=== PATIENT | female | born 1975 | race Two or more races ===

== ENCOUNTER 2016-12-28 18:31 | Outpatient (CLI) | payer OTHER ==
[~2016-12-28] VITALS: Ht 157.5 cm; Wt 124.8 kg
[2016-12-28 18:50] VITALS: Ht 157.5 cm; Wt 124.8 kg
[2016-12-28] MEDS ORDERED: PNV11TAB PO (18:54)
[2016-12-28 19:32] LABS: BASOPHILS % 0.2 % (0.0-2.0); EOSINOPHILS % 0.8 % (0.0-7.0); HEMATOCRIT 31.5 % (37.0-47.0); HEMOGLOBIN 10.2 g/dl (12.0-16.0); MEAN CORPUSCULAR HEMOGLOBIN 26.8 pg (29.0-33.0); MEAN CORPUSCULAR HGB CONC 32.4 g/dl (32.0-37.0); MEAN CORPUSCULAR VOLUME 82.7 fl (82.0-101.0); MEAN PLATELET VOLUME 12.9 fl (7.4-10.4); MONOCYTES % 6.8 % (0.0-11.0); NEUTROPHILS % 63.5 % (39.0-77.0); PLATELET COUNT 200 10^3/UL (140-415); RED BLOOD COUNT 3.81 10^6/ul (4.20-5.40); WHITE BLOOD COUNT 10.3 10^3/ul (4.8-10.8)
--- NOTE | 2016-12-28 19:32 | RADRPT ---
PROCEDURE: Obstetrical ultrasound. CLINICAL INDICATION: , evaluation. Pelvic pain. TECHNIQUE: Transabdominal sonographic images of the uterus obtained after first trimester , greater than 14 weeks gestation. Single intrauterine gestation present. COMPARISON: 10/17/2016 FINDINGS: Single intrauterine gestation. There is a cephalic presentation. Measurements were made in order to determine age. The results are as follows: BPD = 37 weeks 6 day(s) HC = 37 weeks 0 day(s) AC = 37 weeks 0 day(s) FL = 37 weeks 2 day(s) ELLIS = not measured Heart rate = 127 beats per minute The placenta is anterior. There is no evidence for an abruption or placenta previa. Ovaries are not visualized. IMPRESSION: Single intrauterine gestation of approximately 37 weeks 2 days by ultrasound criteria. [place] estimated weight = 3126 g; 72 percentile for gestational age of 36 weeks 3 days. RPTAT: AADD .Lee Smiley MD, MD Date Time Electronically viewed and signed by .Lee Smiley MD, on 12/28/2016 19:31 .B/
[2016-12-28 19:33] LABS: EOSINOPHILS # 0.1 10^3/ul (0.0-0.5); LYMPHOCYTES # 2.9 10^3/ul (0.8-2.9); MONOCYTE # 0.7 10^3/ul (0.3-0.9); NEUTROPHIL # 6.6 10^3/ul (1.6-7.5)
--- NOTE | 2016-12-28 19:37 | RADRPT ---
PROCEDURE: Obstetrical ultrasound for biophysical profile CLINICAL INDICATION: Biophysical profile. . TECHNIQUE: Obstetrical ultrasound of the uterus for biophysical profile. Transabdominal views are obtained. COMPARISON: 10/17/2016 FINDINGS: Single intrauterine gestation. Presentation: Cephalic. Placenta: Anterior. No evidence of placental abruption. No evidence of placenta previa. breathing movement = 2/2 tone = 2/2 motion = 2/2 ELLIS = 2/2 ELLIS = 12.2 cm heart rate: 127 beats per minute IMPRESSION: Single intrauterine gestation. Biophysical profile 10/09 RPTAT: AADD .Lee Smiley MD, MD Date Time Electronically viewed and signed by .Lee Smiley MD, on 12/28/2016 19:36 .B/
[2016-12-28 19:47] LABS: INR 0.98
[2016-12-28 19:48] LABS: PARTIAL THROMBOPLASTIN TIME 27.1 Sec (25.0-35.0)
[2016-12-28 20:02] LABS: ALBUMIN 3.5 g/dl (3.3-4.9); ALBUMIN/GLOBULIN RATIO 1.16; BILIRUBIN,INDIRECT 0.1 mg/dl (0-1.1); BILIRUBIN,TOTAL 0.1 mg/dl (0.2-1.3); CALCIUM 8.7 mg/dl (8.4-10.2); CREATININE 0.62 mg/dl (0.44-1.00); POTASSIUM 4.6 mmol/L (3.5-5.1); TOTAL PROTEIN 6.5 g/dl (6.1-8.1); URIC ACID 3.8 mg/dl (3.1-7.9)
--- NOTE | 2016-12-28 21:34 | PN ---
Triage Information Date/Time Reason for visit: Uterine contractions Weeks of Gestation 36w 3d /Para Objective Heart Rate: 120's Heart Rate Comments reactive Contractions: 6-10 Minutes Apart Exam 1cm/thick/high Results/Medications Result Diagram: 12/28/16191112/28/161911 Results 24 hrs Laboratory Tests Test 12/28/16 19:12 White Blood Count 10.3 Red Blood Count 3.81 L Hemoglobin 10.2 L Hematocrit 31.5 L Mean Corpuscular Volume 82.7 Mean Corpuscular Hemoglobin 26.8 L Mean Corpuscular Hemoglobin Concent 32.4 Red Cell Distribution Width 15.0 H Platelet Count 200 Mean Platelet Volume 12.9 H Neutrophils % 63.5 Lymphocytes % 28.0 Monocytes % 6.8 Eosinophils % 0.8 Basophils % 0.2 Nucleated Red Blood Cells % 0.0 Neutrophils # 6.6 Lymphocytes # 2.9 Monocytes # 0.7 Eosinophils # 0.1 Basophils # 0.0 Nucleated Red Blood Cells # 0.0 Prothrombin Time 13.0 Prothrombin Time Ratio 1.0 INR International Normalized Ratio 0.98 Activated Partial Thromboplast Time 27.1 Fibrinogen 663.0 H Sodium Level 139 Potassium Level 4.6 Chloride Level 109 Carbon Dioxide Level 21 Anion Gap 14 Blood Urea Nitrogen 7 Creatinine 0.62 Glucose Level 78 Uric Acid 3.8 Calcium Level 8.7 Total Bilirubin 0.1 L Direct Bilirubin 0.00 Indirect Bilirubin 0.1 Aspartate Amino Transf (AST/SGOT) 14 L Alanine Aminotransferase (ALT/SGPT) 18 Alkaline Phosphatase 118 Total Protein 6.5 Albumin 3.5 Globulin 3.00 Albumin/Globulin Ratio 1.16 Imaging Results BPP 8/8, ELLIS 12.2cm, EFW 3126g Disposition: Discharge Assessment/Plan 41 y/o at 36w 3d with elevated BPs in clinic, no e/o preeclampsia -discharge home with labor precautions -f/u with OB YAMINI BLUE Dec 28, 2016 21:34
[2016-12-28 22:32] LABS: ADD UMIC NO; UR ASCORBIC ACID NEGATIVE (NEGATIVE); UR BILIRUBIN (Dip) NEGATIVE (NEGATIVE); UR BLOOD (Dip) NEGATIVE (NEGATIVE); UR CLARITY CLEAR (CLEAR); UR COLOR YELLOW (YELLOW); UR GLUCOSE (Dip) NEGATIVE (NEGATIVE); UR KETONES (Dip) NEGATIVE (NEGATIVE); UR LEUKOCYTE ESTERASE (Dip) NEGATIVE Leu/ul (NEGATIVE); UR NITRITE (Dip) NEGATIVE (NEGATIVE); UR SPECIFIC GRAVITY (Dip) 1.013 (1.003-1.030); UR TOTAL PROTEIN (Dip) NEGATIVE (NEGATIVE); UR UROBILINOGEN (Dip) NEGATIVE (NEGATIVE)
--- NOTE | 2016-12-28 23:11 | TRIAGE ---
OB Triage Datetime Report Generated by CPN: 12/28/2016 23:10 Datetime: 12/28/2016 21:00 Labor Evaluation Frequency: IRREGULAR Duration (sec)2399: 60 Heart Rate FHR Baseline Rate: 125 FHR Baseline Changes: No Baseline Change Variability: Moderate 6-25 bpm Accelerations: 15X15 Decelerations: None Category: Category I Vaginal Exam Dilatation (cms): 1.0 Effacement (%): 30 Station: -3 Exam By: Hue THURSTON RN Vaginal Bleeding: None Cervix, Consistency: Firm Cervix, Position: Posterior Datetime: 12/28/2016 20:00 Stage of : OB Triage Labor Evaluation Frequency: 2-5 Monitor Mode: External Duration (sec)2399: 50-100 Quality: Mild Pattern: Normal: <= 5 Contractions in 10 Minutes Resting Tone [place]: Relaxed Heart Rate FHR Baseline Rate: 125 Monitor Mode: External US FHR Baseline Changes: No Baseline Change Variability: Moderate 6-25 bpm Accelerations: 15X15 Decelerations: None Category: Category I Datetime: 12/28/2016 19:35 Stage of : OB Triage Assessment Type: Triage Maternal Assessment Level of Consciousness: Fully Conscious DTR's/Clonus: DTRs 2+; No Clonus Headache: Denies Blurred Vision: No Respiratory Effort: Unlabored; Regular Rhythm; Equal Expansion Breath Sounds, Left: Clear and Equal Breath Sounds, Right: Clear and Equal Nausea/Vomiting: Denies RUQ Epigastric Pain: Denies Lower Extremities Edema: Bilateral Lower Extremities Degree: 1+ Upper Extremities Edema: None Degree: None Facial Edema: None Fall Risk Assessment History of Falling: (0) No Secondary Diagnosis: (0) No Ambulatory Aid: (0) Bedrest/Nurse Assist IV Therapy: (0) No Gait: (0) Normal/Bedrest/Immobile Mental Status: (0) Oriented to Own Ability Fall Score: 0 Fall Risk Score Definition: No Risk: No action required Monitor Mode: External Quality: Mild Pattern: Normal: <= 5 Contractions in 10 Minutes Resting Tone [place]: Relaxed Monitor Mode: External US Pain Assessment Pain Scale: 4 Pain Presence: Intermittent Pain Type: Cramping; Contraction Pain Location: Abdomen; Perineum Pain Goal: 3 Pain Relief Measures: Comfort Measures Datetime: 12/28/2016 18:45 Stage of : OB Triage Assessment Type: Triage EGA: 36.3 Maternal Assessment Level of Consciousness: Fully Conscious DTR's/Clonus: DTRs 2+; No Clonus Headache: Denies Blurred Vision: No Respiratory Effort: Unlabored; Regular Rhythm; Equal Expansion Breath Sounds, Left: Clear and Equal Breath Sounds, Right: Clear and Equal Nausea/Vomiting: Denies RUQ Epigastric Pain: Denies Facial Edema: None Temperature Route: Axillary Fall Risk Assessment History of Falling: (0) No Secondary Diagnosis: (0) No Ambulatory Aid: (0) Bedrest/Nurse Assist IV Therapy: (0) No Gait: (0) Normal/Bedrest/Immobile Mental Status: (0) Oriented to Own Ability Fall Score: 0 Fall Risk Score Definition: No Risk: No action required Labor Evaluation Frequency: Q5 Monitor Mode: External Duration (sec)2399: 30 Quality: Mild Pattern: Normal: <= 5 Contractions in 10 Minutes Resting Tone [place]: Relaxed Monitor Mode: External US Pain Assessment Pain Scale: 4 Pain Presence: Intermittent Pain Type: Cramping; Contraction Pain Location: Abdomen; Perineum Pain Goal: 3 Pain Relief Measures: Comfort Measures Datetime: 12/28/2016 18:44 Time of Arrival: 12/28/2016 18:25 Arrived By: Ambulatory Arrived From: Dr. Baird Chief Complaint: SENT FROM DR BAIRD TO R/O [facility] Movement: Present Contractions: Denies/Absent Rupture of Membranes: Denies Vaginal Discharge: Denies Recent Sexual Intercouse: Denies Abdominal Trauma: Not Applicable Additional Patient Complaints: C/O VAGINAL PAIN Time Provider Notified: 12/28/2016 20:58 Provider Notified: DR BLUE Initial Plan: MONITOR, PIH PANEL, EFW
== END 2016-12-28 21:14 | disposition home or self-care (01) ==
LOC: OBT 18:31 → L-D 18:33 → OBT 21:14
PROVIDERS: ATTEND Obstetrics & Gynecology
DX: O62.9 Abnormality of forces of labor, unspecified (principal); Z3A.36 36 weeks gestation of pregnancy
CPT/HCPCS: 76815; 76818; 80053; 81003; 84560; 85025; 85384; 85610; 85730; Z7500; G0463

== ENCOUNTER 2017-01-11 15:14 | Outpatient (CLI) | payer OTHER ==
[~2017-01-11] VITALS: Ht 160 cm; Wt 126.2 kg
[~2017-01-11 15:14] MED LIST: PNV11TAB PO
[2017-01-11 15:23] VITALS: Ht 160 cm; Wt 126.2 kg
[2017-01-11 15:24] VITALS: BP 126/64; RESP 16
--- NOTE | 2017-01-11 15:49 | RADRPT ---
PROCEDURE: US OB biophysical profile. CLINICAL INDICATION: decreased movements TECHNIQUE: Multiple sonographic images of the pelvis were obtained. The images were reviewed on a PACS workstation. COMPARISON: 12/28/16 FINDINGS: There is a single viable intrauterine gestation. Cardiac activity is present with 154 beats per min peggy. There is a vertex presentation. The placenta is anterior. There is no evidence of placental abruption. There is a normal amount of amniotic fluid with an ELLIS = 12.1 cm. Biophysical profile: movement 2/2 tone 2/2. breathing 2/2 ELLIS 2/2 Total 10/09 RPTAT: AA . IMPRESSION: Normal biophysical profile. . .Juan Herbert MD, MD Date Time Electronically viewed and signed by .Juan Herbert MD, MD on 01/11/2017 15:48 .S/
--- NOTE | 2017-01-11 17:27 | TRIAGE ---
OB Triage Datetime Report Generated by CPN: 01/11/2017 17:27 Datetime: 01/11/2017 17:11 Labor Evaluation Frequency: 0 Monitor Mode: External Pattern: Normal: <= 5 Contractions in 10 Minutes Resting Tone [place]: Relaxed Heart Rate FHR Baseline Rate: 135 Monitor Mode: External US Variability: Moderate 6-25 bpm Accelerations: 15X15 Decelerations: None Category: Category I Pain Presence: None/Denies Datetime: 01/11/2017 16:23 Labor Evaluation Frequency: IRREGULAR Monitor Mode: External Duration (sec)2399: 30-60 Pattern: Normal: <= 5 Contractions in 10 Minutes Resting Tone [place]: Relaxed Heart Rate FHR Baseline Rate: 145 Monitor Mode: External US Variability: Moderate 6-25 bpm Accelerations: 15X15 Decelerations: None Category: Category I Pain Presence: None/Denies Pain Type: N/A Datetime: 01/11/2017 15:41 Comments: US AT BEDSIDE Datetime: 01/11/2017 15:34 Time of Arrival: 01/11/2017 15:05 EGA: 38.3 Arrived By: Ambulatory Arrived From: Home Chief Complaint: DFM Movement: Decreased Contractions: Denies/Absent Rupture of Membranes: Denies Vaginal Bleeding: None Vaginal Discharge: Denies Recent Sexual Intercouse: Denies Abdominal Trauma: Not Applicable Patient Complaints: None Additional Patient Complaints: EFMX2, NST BPP Time Provider Notified: 01/11/2017 16:24 Provider Notified: / VONNIE Datetime: 01/11/2017 15:27 Stage of : OB Triage Assessment Type: Triage Maternal Assessment Level of Consciousness: Fully Conscious DTR's/Clonus: DTRs 2+; No Clonus Headache: Denies Blurred Vision: No Respiratory Effort: Unlabored; Regular Rhythm; Equal Expansion Breath Sounds, Left: Clear and Equal Breath Sounds, Right: Clear and Equal Nausea/Vomiting: Denies RUQ Epigastric Pain: Denies Lower Extremities Edema: None Degree: None Upper Extremities Edema: None Degree: None Facial Edema: None Temperature Route: Oral Fall Risk Assessment History of Falling: (0) No Secondary Diagnosis: (0) No Ambulatory Aid: (0) Bedrest/Nurse Assist IV Therapy: (0) No Gait: (0) Normal/Bedrest/Immobile Mental Status: (0) Oriented to Own Ability Fall Score: 0 Fall Risk Score Definition: No Risk: No action required Labor Evaluation Frequency: 0 Monitor Mode: External Heart Rate FHR Baseline Rate: 135 Monitor Mode: External US Variability: Moderate 6-25 bpm Accelerations: 15X15 Decelerations: None Category: Category I Pain Assessment Pain Scale: 0 Pain Presence: None/Denies Pain Type: N/A Datetime: 12/28/2016 20:58 Stage of : OB Triage Datetime: 12/28/2016 19:35 Fall Score: 0 Fall Risk Score Definition: No Risk: No action required Datetime: 12/28/2016 18:45 EGA: 36.3 Fall Score: 0 Fall Risk Score Definition: No Risk: No action required
--- NOTE | 2017-01-11 17:35 | PN ---
Triage Information Date/Time Reason for visit: DFM Weeks of Gestation 38+ /Para 5/4 Diabetes: none Hypertention: none Objective Vital Signs Date Time Temp Pulse Resp B/P Pulse Ox O2 Delivery O2 Flow Rate FiO2 01/11/17 15:24 97.9 16 126/64 Room Air Heart Rate: 140's Contractions: None Disposition: Discharge Assessment/Plan Retrun [facility] in 2 days for NST BPP Precautions extensively discussed with patient SAMIR IBRAHIM M.D. Jan 11, 2017 17:35
== END 2017-01-11 17:25 | disposition home or self-care (01) ==
LOC: OBT 15:14 → L-D 15:16 → OBT 17:25
PROVIDERS: ATTEND Obstetrics & Gynecology
DX: O36.8130 Decreased fetal movements, third trimester, not applicable or unspecified (principal); O09.523 Supervision of elderly multigravida, third trimester; Z3A.38 38 weeks gestation of pregnancy
CPT/HCPCS: 76818; Z7500; G0463

== ENCOUNTER 2017-01-17 04:45 | Inpatient (IN) | payer OTHER ==
[~2017-01-17] VITALS: Ht 157.5 cm; Wt 124.9 kg
[2017-01-17] VITALS (7 sets, daily range): BP systolic 104–132; BP diastolic 53–81; PULSE 67–99; RESP 18–20; Ht 157.5 cm; Wt 124.9 kg
[2017-01-17] MEDS ORDERED: LACTATED RINGER'S 1,000 ML IV SCH (05:42)
[2017-01-17] MEDS ORDERED: LACTATED RINGER'S 1,000 ML IV PRN (05:44)
[2017-01-17] MEDS ORDERED: LIDOCAINE 1% (MPF) 30 ML INJ INJ PRN (06:00)
[2017-01-17] MEDS ORDERED: CARBOPROST 250 MCG INJ IM PRN (06:00)
[2017-01-17] MEDS ORDERED: BUTORPHANOL 2 MG INJ IV PRN (06:00)
[2017-01-17] MEDS ORDERED: METHYLERGONOVINE 0.2 MG INJ IM PRN (06:00)
[2017-01-17] MEDS ORDERED: MISOPROSTOL 200 MCG TAB PR PRN (06:00)
[2017-01-17] MEDS ORDERED: IBUPROFEN 600 MG TAB PO PRN (06:00)
[2017-01-17] MEDS ORDERED: OXYCODONE/ASPIRIN (4.88/325) TAB PO PRN ×3 (06:00→09:30)
[2017-01-17] MEDS ORDERED: OXYTOCIN 30 UNITS/LR 500 ML IV PRN (06:00)
[2017-01-17] MEDS ORDERED: OXYTOCIN 30 UNITS/LR 500 ML IV SCH ×4 (06:00→09:14)
[2017-01-17 06:28] LABS: ABNORMAL IP MESSAGE 1; BASOPHILS % 0.3 % (0.0-2.0); EOSINOPHILS # 0.1 10^3/ul (0.0-0.5); EOSINOPHILS % 1.1 % (0.0-7.0); HEMATOCRIT 33.7 % (37.0-47.0); HEMOGLOBIN 10.8 g/dl (12.0-16.0); LYMPHOCYTES # 2.6 10^3/ul (0.8-2.9); LYMPHOCYTES % 27.2 % (15.0-51.0); MEAN CORPUSCULAR HEMOGLOBIN 25.8 pg (29.0-33.0); MEAN CORPUSCULAR VOLUME 80.4 fl (82.0-101.0); MEAN PLATELET VOLUME 13.3 fl (7.4-10.4); MONOCYTE # 0.6 10^3/ul (0.3-0.9); MONOCYTES % 6.2 % (0.0-11.0); NEUTROPHIL # 6.1 10^3/ul (1.6-7.5); NEUTROPHILS % 64.4 % (39.0-77.0); PLATELET COUNT 198 10^3/UL (140-415); RED BLOOD COUNT 4.19 10^6/ul (4.20-5.40); RED CELL DISTRIBUTION WIDTH 14.6 % (11.5-14.5); WHITE BLOOD COUNT 9.5 10^3/ul (4.8-10.8)
[2017-01-17 06:42] LABS: POSITIVE DIFF @See below
--- NOTE | 2017-01-17 06:47 | HP ---
Date/Time of Note Date/Time of Note DATE: 01/17/17 TIME: 06:43 OB - History Hx of Present Free Text/Dictation 01/17/2017 Chief Complaint: SROM : 7 Para: 5 Spontaneous : 0 Therapeutic : 0 Care: Good Care Other Concerns: 41-year-old with IUP at 39 weeks and 2 days presented with complaint of leaking of fluid since 4 AM. She was not that to have gross SROM. She also was in early labor. Cervix was 3 cm dilated 6% effaced -3. GBS was negative. Reports his serial hypertension and current . Was on baby aspirin. Denies any headache, blurred vision or epigastric pain. Past Family/Social History * Past Medical, Surgical, Family and Obstetric Histories reviewed from chart. OB Admission Exam Vital Signs Vital Signs Vital Signs Date Time Temp Pulse Resp B/P Pulse Ox O2 Delivery O2 Flow Rate FiO2 01/17/17 05:41 98.3 99 19 132/81 Room Air Physical Exam HEENT: WNL Lungs: Clear Abdomen: WNL Cervical Dilatation: 3cm Effacement: 75% Station: -3 Amniotic Fluid: Clear Heart Rate: 130's Accelerations: Accelerations Present Decelerations: No Decelerations Varibility: Moderate Contractions on Admission: < 5 Minutes Apart Intensity: Moderate Last 72 hours Lab Results CBC & BMP 01/17/17 06:05 OB Assessment/Plan Reason for admission: active labor, rupture of membranes Other Assessment: IUP at 39 weeks and 2 days Labor S R OM GBS negative Admit the patient to labor and delivery *Pitocin PIH panel Watch blood pressure closely Currently BP normal and patient is asymptomatic Active management of labor Anticipate Epidural when desires TEODORO DOTSON MD Jan 17, 2017 06:47
[2017-01-17 06:50] LABS: INR 0.96; PROTIME 12.8 Sec (12.2-14.2)
[2017-01-17 06:56] LABS: ALBUMIN 3.2 g/dl (3.3-4.9); ALBUMIN/GLOBULIN RATIO 0.86; BILIRUBIN,INDIRECT 0.1 mg/dl (0-1.1); BILIRUBIN,TOTAL 0.1 mg/dl (0.2-1.3); CALCIUM 9.2 mg/dl (8.4-10.2); CREATININE 0.61 mg/dl (0.44-1.00); POTASSIUM 4.2 mmol/L (3.5-5.1); TOTAL PROTEIN 6.9 g/dl (6.1-8.1); URIC ACID 4.3 mg/dl (3.1-7.9)
--- NOTE | 2017-01-17 07:36 | TRIAGE ---
OB Triage Datetime Report Generated by CPN: 01/17/2017 07:36 Datetime: 01/17/2017 07:00 Labor Evaluation Frequency: 2-3 Monitor Mode: External Duration (sec)2399: 60-150 Quality: Moderate Pattern: Normal: <= 5 Contractions in 10 Minutes Resting Tone [place]: Relaxed Heart Rate FHR Baseline Rate: 140 Monitor Mode: External US FHR Baseline Changes: No Baseline Change Variability: Moderate 6-25 bpm Accelerations: 15X15 Decelerations: None Category: Category I Pain Assessment Pain Scale: 10 Pain Presence: Intermittent Pain Type: Contraction Pain Location: Abdomen Pain Relief Measures: Comfort Measures Vaginal Exam Dilatation (cms): 9.0 Effacement (%): 90 Station: -1 Exam By: FPC Datetime: 01/17/2017 06:43 Vaginal Exam Dilatation (cms): 8.0 Effacement (%): 90 Station: -2 Datetime: 01/17/2017 06:18 Assessment Type: Admission Assessment Vaginal Bleeding: None Maternal Assessment Level of Consciousness: Fully Conscious DTR's/Clonus: DTRs 2+; No Clonus Headache: Denies Blurred Vision: No Respiratory Effort: Unlabored; Regular Rhythm; Equal Expansion Breath Sounds, Left: Clear and Equal Breath Sounds, Right: Clear and Equal Nausea/Vomiting: Denies RUQ Epigastric Pain: Denies Lower Extremities Edema: None Degree: None Upper Extremities Edema: None Degree: None Facial Edema: None Fall Risk Assessment History of Falling: (0) No Secondary Diagnosis: (0) No Ambulatory Aid: (0) Bedrest/Nurse Assist IV Therapy: (20) Yes Gait: (0) Normal/Bedrest/Immobile Mental Status: (0) Oriented to Own Ability Fall Score: 20 Fall Risk Score Definition: No Risk: No action required Labor Evaluation Frequency: 2-3 Duration (sec)2399: 60-120 Quality: Moderate Pattern: Normal: <= 5 Contractions in 10 Minutes Resting Tone [place]: Relaxed Heart Rate FHR Baseline Rate: 140 Variability: Moderate 6-25 bpm Accelerations: 15X15 Decelerations: None Category: Category I Pain Assessment Pain Scale: 9 Pain Presence: Intermittent Pain Type: Contraction Pain Location: Abdomen Pain Goal: 4 Membrane Status: Ruptured Membranes Ruptured Date/Time: 01/17/2017 04:00 Membranes Rupture Method: Spontaneous Amniotic Fluid Color: Clear Amniotic Fluid Amount: Moderate Amniotic Fluid Odor: None Datetime: 01/17/2017 05:43 Stage of : Labor Datetime: 01/17/2017 05:40 Time of Arrival: 01/17/2017 05:40 EGA: 39.2 Arrived By: Stretcher Arrived From: TRIAGE Datetime: 01/17/2017 05:38 Stage of : Labor Vaginal Exam Dilatation (cms): 4.5 Effacement (%): 80 Station: -2 Exam By: group home Datetime: 01/17/2017 05:04 Membrane Status: Ruptured Datetime: 01/17/2017 05:02 Vaginal Exam Dilatation (cms): 3.0 Effacement (%): 70 Station: -3 Datetime: 01/17/2017 05:00 Assessment Type: Triage Time of Arrival: 01/17/2017 04:45 EGA: 39.2 Arrived By: Wheelchair Arrived From: Home Chief Complaint: UC'S SROM @0400 WITH CLEAR FLUID Movement: Present Contractions: Regular Time Contractions Began: 01/17/2017 04:00 Contractions: 3-4 Rupture of Membranes: Ruptured Vaginal Bleeding: Normal Show Vaginal Discharge: Present Recent Sexual Intercouse: Denies Abdominal Trauma: Not Applicable Patient Complaints: Contractions Time Provider Notified: 01/17/2017 05:23 Provider Notified: DR. DOTSON Initial Plan: EFM, SVE Maternal Assessment Level of Consciousness: Fully Conscious DTR's/Clonus: DTRs 2+; No Clonus Headache: Denies Blurred Vision: No Respiratory Effort: Unlabored; Regular Rhythm; Equal Expansion Breath Sounds, Left: Clear and Equal Breath Sounds, Right: Clear and Equal Nausea/Vomiting: Denies RUQ Epigastric Pain: Denies Facial Edema: None Fall Risk Assessment History of Falling: (0) No Secondary Diagnosis: (0) No Ambulatory Aid: (0) Bedrest/Nurse Assist IV Therapy: (0) No Gait: (0) Normal/Bedrest/Immobile Mental Status: (0) Oriented to Own Ability Fall Score: 0 Fall Risk Score Definition: No Risk: No action required Datetime: 01/17/2017 04:59 Contraction Comments: APPLIED Comments: APPLIED Datetime: 01/13/2017 18:00 Maternal Assessment Level of Consciousness: Fully Conscious DTR's/Clonus: DTRs 1+ Headache: Denies Breath Sounds, Left: Clear and Equal Breath Sounds, Right: Clear and Equal Nausea/Vomiting: Denies RUQ Epigastric Pain: Denies Labor Evaluation Frequency: X1` Monitor Mode: External Duration (sec)2399: 70 Quality: Mild Pattern: Normal: <= 5 Contractions in 10 Minutes Resting Tone [place]: Relaxed Heart Rate FHR Baseline Rate: 140 Monitor Mode: External US Variability: Moderate 6-25 bpm Accelerations: 15X15 Decelerations: None Category: Category I Pain Assessment Pain Scale: 2 Pain Presence: Intermittent Pain Type: Contraction Pain Location: Back Pain Goal: 3 Membrane Status: Intact Datetime: 01/13/2017 16:48 EGA: 38.5 Datetime: 01/11/2017 15:34 EGA: 38.3 Datetime: 01/11/2017 15:27 Fall Score: 0 Fall Risk Score Definition: No Risk: No action required Datetime: 12/28/2016 19:35 Fall Score: 0 Fall Risk Score Definition: No Risk: No action required Datetime: 12/28/2016 18:45 EGA: 36.3 Fall Score: 0 Fall Risk Score Definition: No Risk: No action required Presentation 'A': Cephalic
--- NOTE | 2017-01-17 08:52 | LDN ---
Date/Time of Note Date/Time of Note DATE: 01/17/17 TIME: 08:46 Delivery Summary Normal spontaneous vaginal delivery of a baby girl from OA position, cord clamped after stopped pulsation placenta spontaneous expulsion inspected complete patient sustained a small first-degree perineal laceration repaired with 3-0 chromic catgut(delivery and repair of the perineal laceration done by ) Weeks of Gestation 9 weeks 2 days Placenta Delivered: Spontaneously Meconium: none Episiotomy: No Laceration repair: First-degree perineal laceration repaired with 3-0 chromic catgut Anesthesia type: Local Estimated blood loss: 200 Sponge & Needle done & correct: Yes All needle counts correct: Yes Any foreign bodies felt in the: No Problems: Infant Delivery Information Sex Infant Sex: female Apgars 1 Minute: 8 5 Minute: 9 Suctioning Nose & mouth suctioned at sharad: Yes Delee suction performed: No Umbilical Cord Umbilical cord with: 3 Vessels Cord presentations: no nuchal cord Cord Blood was obtained: Yes TARAN SHANKAR MD Jan 17, 2017 08:52
[2017-01-17] MEDS ORDERED: ONDANSETRON 4 MG INJ IV PRN (09:30)
[2017-01-17] MEDS ORDERED: HYDROCODONE/APAP (5/325) TAB PO PRN (09:30)
[2017-01-17] MEDS ORDERED: DIBUCAINE 1% 30 GM OINT PR PRN (09:30)
[2017-01-17] MEDS ORDERED: WITCH HAZEL/GLYCERIN PAD PR PRN (09:30)
[2017-01-17] MEDS ORDERED: BENZOCAINE 20% 56 ML SPRAY TOP PRN (09:30)
[2017-01-17] MEDS ORDERED: ACETAMINOPHEN 325 MG TAB PO PRN (09:30)
[2017-01-17] MEDS ORDERED: LANOLIN 7 GM TUBE TOP PRN (09:30)
[2017-01-17] MEDS: IBUPROFEN 600 MG TAB PO SCH ×2 (11:42→17:24)
[2017-01-17] MEDS ORDERED: INFLUENZA VIRUS VACCINE 0.5 ML SYG IM* ONE (16:00)
[2017-01-17] MEDS: ACCU-CHEK XX SCH ×2 (17:35→21:51)
[2017-01-17] MEDS: SENNA/DOCUSATE NA (8.6MG/50MG) TAB PO SCH (21:00)
[2017-01-17] MEDS: HYDROCODONE/APAP (5/325) TAB PO PRN (23:31)
[2017-01-18] MEDS: HYDROCODONE/APAP (5/325) TAB PO PRN ×2 (03:26→22:33)
[2017-01-18 04:05] VITALS: BP 95/51; PULSE 63; RESP 18
[2017-01-18 05:07] VITALS: BP 94/60; PULSE 80; RESP 18
[2017-01-18] MEDS: IBUPROFEN 600 MG TAB PO SCH ×5 (06:00→23:59)
[2017-01-18 07:55] VITALS: BP 109/56; PULSE 65; RESP 16
[2017-01-18] MEDS: SENNA/DOCUSATE NA (8.6MG/50MG) TAB PO SCH ×2 (08:49→20:03)
--- NOTE | 2017-01-18 09:46 | QN ---
Documentation Comment Post normal vaginal delivery day 1 Afebrile Vital signs are stable Abdomen soft Uterus firm Lochia normal Extremity normal TARAN SHANKAR MD Jan 18, 2017 09:46
[2017-01-18 10:36] LABS: BASOPHILS % 0.3 % (0.0-2.0); EOSINOPHILS # 0.1 10^3/ul (0.0-0.5); EOSINOPHILS % 1.5 % (0.0-7.0); HEMATOCRIT 31.5 % (37.0-47.0); HEMOGLOBIN 10.2 g/dl (12.0-16.0); LYMPHOCYTES # 3.3 10^3/ul (0.8-2.9); LYMPHOCYTES % 34.7 % (15.0-51.0); MEAN CORPUSCULAR HEMOGLOBIN 26.5 pg (29.0-33.0); MEAN CORPUSCULAR HGB CONC 32.4 g/dl (32.0-37.0); MEAN CORPUSCULAR VOLUME 81.8 fl (82.0-101.0); MONOCYTE # 0.5 10^3/ul (0.3-0.9); MONOCYTES % 4.9 % (0.0-11.0); NEUTROPHIL # 5.5 10^3/ul (1.6-7.5); NEUTROPHILS % 57.7 % (39.0-77.0); PLATELET COUNT 194 10^3/UL (140-415); RED BLOOD COUNT 3.85 10^6/ul (4.20-5.40); RED CELL DISTRIBUTION WIDTH 15.1 % (11.5-14.5); WHITE BLOOD COUNT 9.5 10^3/ul (4.8-10.8)
[2017-01-18 16:30] VITALS: BP 99/60; PULSE 69; RESP 14
[2017-01-18 20:00] VITALS: BP 124/68; PULSE 76; RESP 18
[2017-01-18] MEDS: ACCU-CHEK XX SCH (23:59)
[2017-01-19 04:00] VITALS: BP 112/73; PULSE 65; RESP 18
[2017-01-19] MEDS: IBUPROFEN 600 MG TAB PO SCH ×3 (05:13→18:02)
[2017-01-19 08:20] VITALS: BP 100/72; PULSE 68; RESP 17
[2017-01-19] MEDS: SENNA/DOCUSATE NA (8.6MG/50MG) TAB PO SCH (08:57)
[2017-01-19] MEDS ORDERED: MEASLES,MUMPS,RUBELLA VACCINE INJ SC* ONE (09:00)
--- NOTE | 2017-01-19 10:58 | DS ---
Date/Time of Note Date/Time of Note DATE: 01/19/17 TIME: 10:51 Obstetrical Discharge Record Final Diagnosis Final Diagnosis: delivered Vaginal Delivery Obstetrical Delivery: Spontaneous Complications Gestational Age at Rupture Post day 2 Doing Well Afebrile Ambulatory Chest Clear Abdomen is soft Fundus is firm Moderate amount of lochia Laboratory Tests Test 01/18/17 13:07 01/18/17 17:38 01/19/17 00:03 01/19/17 08:45 Bedside Glucose 60mg/dL 106mg/dL 91mg/dL 65mg/dL Current Medications Medications (Trade) Dose Ordered Sig/Malini Route PRN Reason Start Time Stop Time Status Last Admin Dose Admin Lactated Ringer's 1,000 ml @ 125 mls/hr Q8H IV 01/17/17 05:42 01/17/17 09:22 DC 01/17/17 06:11 Oxytocin/Lactated Ringer's 500 ml @ 0 mls/hr TITRATE IV 01/17/17 06:00 01/17/17 09:22 DC Butorphanol Tartrate (Stadol) 2 mg Q2H PRN IV PAIN 01/17/17 06:00 01/17/17 09:22 DC Lidocaine 30 ml 30 ml ONCE PRN INJ EPISIOTOMY/TEARING 01/17/17 06:00 01/17/17 09:22 DC 01/17/17 07:25 Oxytocin/Lactated Ringer's 500 ml @ 125 mls/hr ONCE -MAY REPEAT X1 IV 01/17/17 06:00 01/17/17 09:22 DC 01/17/17 07:26 Oxytocin/Lactated Ringer's 500 ml @ 125 mls/hr ONCE IV 01/17/17 06:00 01/17/17 09:22 DC 01/17/17 07:49 Ibuprofen (Motrin) 600 mg ONCE PRN PO Mild Pain (Pain Score 1-3) 01/17/17 06:00 01/17/17 09:22 DC Oxycodone/Aspirin 2 tab 2 tab ONCE PRN PO Moderate to Severe Pain (4-10) 01/17/17 06:00 01/17/17 09:22 DC Lactated Ringer's 1,000 ml @ 2,000 mls/hr Q30M PRN IV PRE-EPIDURAL BOLUS 01/17/17 05:44 01/17/17 09:22 DC Oxytocin/Lactated Ringer's 500 ml @ 0 mls/hr ONCE PRN IV For Hemorrhage Management 01/17/17 06:00 01/17/17 09:22 DC Methylergonovine Maleate (Methergine) 0.2 mg ONCE PRN IM VAGINAL BLEEDING 01/17/17 06:00 01/17/17 09:22 DC Carboprost Tromethamine (Hemabate) 250 mcg ONCE PRN IM VAGINAL BLEEDING 01/17/17 06:00 01/17/17 09:22 DC Misoprostol 1000 mcg 1,000 mcg ONCE PRN CA VAGINAL BLEEDING 01/17/17 06:00 01/17/17 09:22 DC Oxytocin/Lactated Ringer's 500 ml @ 125 mls/hr Q4H IV 01/17/17 09:14 01/17/17 16:50 DC 01/17/17 10:46 Ibuprofen (Motrin) 600 mg Q6 PO 01/17/17 12:00 01/19/17 05:13 Acetaminophen (Tylenol Tab) 650 mg Q4H PRN PO PAIN LEVEL 1-5 01/17/17 09:30 Acetaminophen/ Hydrocodone Bitart ([place] (5/325)) 1 tab Q4H PRN PO PAIN LEVEL 1-5 01/17/17 09:30 Acetaminophen/ Hydrocodone Bitart ([place] (5/325)) 2 tab Q4H PRN PO PAIN LEVEL 6-10 01/17/17 09:30 01/18/17 22:33 Oxycodone/Aspirin (Percodan) 1 tab Q3H PRN PO PAIN LEVEL 1-5 01/17/17 09:30 Oxycodone/Aspirin (Percodan) 2 tab Q3H PRN PO PAIN LEVEL 6-10 01/17/17 09:30 Ondansetron HCl (Zofran Inj) 4 mg Q6H PRN IV NAUSEA AND/OR VOMITING 01/17/17 09:30 Senna/Docusate Sodium (Senokot-S) 1 tab BID PO 01/17/17 21:00 01/19/17 08:57 Witch Evi/ Glycerin (Tucks Pads) 1 pad BEDSIDE MEDICATION PRN CA HEMORRHOID/EPISIOTMY PAIN 01/17/17 09:30 01/17/17 10:43 Benzocaine (Dermoplast [place]) 1 spray BEDSIDE MEDICATION PRN TOP HEMORRHOID/EPISIOTMY PAIN 01/17/17 09:30 01/17/17 10:43 Dibucaine (Nupercainal) 1 applic BEDSIDE MEDICATION PRN CA HEMORRHOID/EPISIOTMY PAIN 01/17/17 09:30 Lanolin (Rau-T-Ggltck) 1 applic BEDSIDE MEDICATION PRN TOP BEDSIDE FOR ALLYN TO NIPPLES 01/17/17 09:30 Measles/Mumps/ Rubella Vaccine Live (Mmr Ii Vaccine) 0.5 ml ONCE ONCE SC* 01/19/17 09:00 01/19/17 09:01 DC Influenza Virus Vaccine (Fluzone) 0.5 ml ONCE ONCE IM* 01/17/17 16:00 01/17/17 16:01 DC 01/18/17 18:52 Diagnostic Test (Pha) (Accu-Chek) 1 ea AC MEALS AND BEDTIME XX 01/17/17 17:35 01/18/17 23:59 No calf tenderness No ankle edema Condition on Discharge Physical Assessment Last Vitals: in NICU due to hypoglycemia She has an about 1-1/2 cm in diameter lump on her right breast which is not tender we will do a breast ultrasound Voiding: Yes Bowel Movement: Yes Breast: Soft, non-tender, Other Fundus: Firm Episiotomy: First degree laceration was repaired Calf Tenderness: No Patient Condition: Good JADON MIRAMONTES MD Jan 19, 2017 10:58
[2017-01-19 16:22] VITALS: BP 118/64; PULSE 87; RESP 18
--- NOTE | 2017-01-19 19:09 | RADRPT ---
PROCEDURE: Right breast ultrasound. CLINICAL INDICATION: Right breast pain and tenderness. Right breast lump. Fibrocystic disease of b reast. TECHNIQUE: Right whole, 4 quadrant breast and retroareolar, and axillary sonography was performed. COMPARISON: None. FINDINGS: In the right upper inner quadrant, 2 o'clock position; there is a circumscribed, round, solid, mildl y vascular, 1.8 x 1.8 x 1.5 cm solid mass. Correlation with bilateral diagnostic mammography, as wel l as right ultrasound-guided core needle biopsy are needed for full evaluation. No suspicious adenopathy. IMPRESSION: 1. Circumscribed, round, palpable, vascular, 1.8 cm solid mass. Additional evaluation with bilateral diagnostic mammography, as well as right ultrasound-guided core needle biopsy are needed for full e valuation. 2. No suspicious adenopathy. ACR BIRADS 0: Incomplete. Need additional imaging evaluation. RPTAT: EE .Airam Marshall MD, MD Date Time Electronically viewed and signed by .Airam Marshall MD, MD on 01/19/2017 19:08 .F/
== END 2017-01-19 20:00 | disposition home or self-care (01) | DRG 775 ==
LOC: OBT 04:45 → L-D 04:49 → OBT 05:30 → PP1 09:10
PROVIDERS: ADMIT Obstetrics & Gynecology; ATTEND Obstetrics & Gynecology
PROC: 10E0XZZ Delivery of Products of Conception, External Approach (ICD-10-PCS; principal; 2017-01-17)
PROC: 0HQ9XZZ Repair Perineum Skin, External Approach (ICD-10-PCS; 2017-01-17)
DX: O70.0 First degree perineal laceration during delivery (principal); N63.12 Unspecified lump in the right breast, upper inner quadrant; Z37.0 Single live birth; Z3A.39 39 weeks gestation of pregnancy
CPT/HCPCS: 76642; 80053; 82962; 83036; 84560; 85025; 85384; 85610; 85730; 86592; 86900; 86901; 87340; 90686; G0463; J2590; J7120